=== PATIENT | male | born 1975 | race Caucasian/White ===

== ENCOUNTER 2016-06-26 14:09 | Emergency (ER) | payer MEDICAID ==
[~2016-06-26] VITALS: Ht 180.3 cm; Wt 134.5 kg
[~2016-06-26 14:09] MED LIST: MORP40CA2 PO; OXYC10TA6 PO
[2016-06-26 14:10] VITALS: BP 201/121
[2016-06-26] MEDS ORDERED: CEFAZOLIN 1,000 MG ONE (16:13)
[2016-06-26] MEDS ORDERED: CEFAZOLIN 1,000 MG IM ONE (16:30)
== END 2016-06-26 16:57 | disposition home or self-care (01) ==
LOC: ED 15:23
DX: L03.116 Cellulitis of left lower limb (principal)
CPT/HCPCS: 73590; 96372; 99284; J0690

== ENCOUNTER 2019-02-16 02:14 | Emergency (ER) | payer MEDICAID ==
[~2019-02-16] VITALS: Ht 180.3 cm; Wt 156.0 kg
--- NOTE | 2019-02-16 02:35 | NUR ---
PT PRESENTED WITH C/O LEFT WRIST PAIN X PAST 2 DAYS, DENIES INJURY. PROVIDED PT WITH GOWN,. MONITORS APPLIED, SIDERAILS UP X2, CALL LIGHT WITHIN REACH
--- NOTE | 2019-02-16 03:15 | NUR ---
PT RESTING ON [employer], MONITORS IN PLACE, CALL LIGHT WITHIN REACH. AWAITING XRAY RESULT
[2019-02-16 03:59] VITALS: BP 145/79
--- NOTE | 2019-02-16 04:04 | NUR ---
ERP AT PT'S BEDSIDE FOR RECHECK
--- NOTE | 2019-02-16 04:21 | NUR ---
PT REQUESTING SUPPORT BANDAGE FOR LEFT WRIST, ERP UPDATED.
--- NOTE | 2019-02-16 04:22 | NUR ---
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
== END 2019-02-16 04:32 | disposition home or self-care (01) ==
LOC: ED 03:29
DX: L03.114 Cellulitis of left upper limb (principal); M25.532 Pain in left wrist; I10 Essential (primary) hypertension; Z72.89 Other problems related to lifestyle
CPT/HCPCS: 99283